=== PATIENT | male | born 1990 | race Caucasian/White ===

== ENCOUNTER 2016-05-03 18:13 | Emergency (ER) | payer SELFPAY ==
[2016-05-03 18:16] VITALS: BP 134/94
[2016-05-03] MEDS ORDERED: CYCL10TA2 PO (19:16)
[2016-05-03] MEDS ORDERED: NAPR250T2 PO (19:16)
--- NOTE | 2016-05-03 19:22 | ED.ADGEN ---
Past Medical History Past Medical History: No Pertinent History Past Surgical History: No Surgical History Alcohol Use: Occasionally Drug Use: None Adult General Chief Complaint Chief Complaint: MECHANICAL FALL HPI HPI Patient is a 25 year old man who presents to the emergency department with a complaint of right shoulder pain. Patient states that he tripped over a curb last night around midnight, and fell striking his shoulder against the ground, which was a grass covered surface. Patient is right-handed. Patient states that he has been noting pain in his shoulder with motion since that time, although he is able to range the arm. Denies any head pain, any neck pain, any chest pain , any abdominal pain, nausea, vomiting. Denies any other injuries or complaints. He states he took ibuprofen around 9:30 this morning, has not taken any medications since that time. No previous injuries. Review of Systems Review of Systems Constitutional: Denies fever or chills. [] Eyes: Denies change in visual acuity. [] HENT: Denies nasal congestion or sore throat. [] Respiratory: Denies cough or shortness of breath. [] Cardiovascular: Denies chest pain or edema. [] GI: Denies abdominal pain, nausea, vomiting, bloody stools or diarrhea. [] : Denies dysuria. [] Musculoskeletal: Denies back pain, complaining of pain in the right shoulder after a fall last night. Integument: Denies rash. [] Neurologic: Denies headache, focal weakness or sensory changes. [] Endocrine: Denies polyuria or polydipsia. [] Lymphatic: Denies swollen glands. [] Psychiatric: Denies depression or anxiety. [] Allergies Allergies Allergies Coded Allergies Type Severity Reaction Last Updated Verified No Known Drug Allergies 05/03/16 No Physical Exam Physical Exam Constitutional: Well developed, well nourished, no acute distress, non-toxic appearance. [] HENT: Normocephalic, atraumatic, bilateral external ears normal, oropharynx moist, no oral exudates, nose normal. [] Eyes: PERRLA, EOMI, conjunctiva normal, no discharge. [] Neck: Normal range of motion, no tenderness, supple, no stridor. [] Cardiovascular:Heart rate regular rhythm, no murmur, S1, S2, rubs or gallops. [] Lungs & Thorax: Bilateral breath sounds clear to auscultation, no wheezing, rhonchi, rales. No chest wall tenderness or crepitus. [] Abdomen: Bowel sounds normal, soft, no tenderness, no masses, no pulsatile masses. [] Skin: Warm, dry, no erythema, no rash. [] Back: No tenderness, no CVA tenderness. [] Extremities: Patient with tenderness all patient in the glenohumeral region, patient is able to range of motion passively, has pain with both passive and active motion, good strength, no bony point tenderness, no cyanosis, no clubbing , no edema. [] Neurologic: Alert and oriented X 3, normal motor function, normal sensory function, no focal deficits noted. [] Psychologic: Affect normal, judgement normal, mood normal. [] Current Patient Data Vital Signs Vital Signs Date Time Temp Pulse Resp B/P Pulse Ox O2 Delivery O2 Flow Rate FiO2 05/03/16 18:16 97.4 107 18 97 Room Air 97.4 EKG EKG Not indicated. [] Radiology/Procedures Radiology/Procedures Right shoulder x-ray: Three-view: Noted to have mild subluxation, no evidence of fracture or dislocation, no lung abnormalities noted in the visualized lung field. As interpreted by me. [] Course & Med Decision Making Course & Med Decision Making Pertinent Labs and Imaging studies reviewed. (See chart for details) Patient's examination consistent with musculoskeletal pain, no evidence of bruising, bleeding, bony abnormalities noted aside from mild subluxation. Discussed with patient use of muscle relaxers and anti-inflammatories, follow- up with orthopedics for additional evaluation if symptoms persist. Patient voiced understanding and agreement. Patient also stated that he has history of "something in my brain that needs surgery". Patient states that he was told this about a year ago at , he cannot recall what he was told. He states that he currently is looking for a second opinion. Patient denies any neurologic complaints, any headache, or any injury to the head. No indication for additional evaluation at this time per his report and history. Patient was given contact information for Dr. Randall of orthopedics, and Dr. Stark of neurosurgery. Also given prescription for cyclobenzaprine and naproxen, first dose given in the ED without issue, as patient has a friend in the room who will drive him home. To follow-up as stated, to return to the ED for concerning symptoms as discussed. Dragon Disclaimer Dragon Disclaimer This electronic medical record was generated, in whole or in part, using a voice recognition dictation system. Departure Impression: Primary Impression: Shoulder pain, right Disposition: 01 HOME, SELF-CARE Condition: IMPROVED Scripts Naproxen 250 Mg [id number] Mg PO BID PRN PAIN #10 Prov:PETRA CEDILLO DO 05/03/16 Cyclobenzaprine Hcl 10 Mg [id number] Mg PO TID PRN MUSCLE PAIN #14 TAB Prov:PETRA CEDILLO DO 05/03/16 PETRA CEDILLO DO May 03, 2016 19:22
[2016-05-03] MEDS ORDERED: CYCLOBENZAPRINE 10 MG TABLET. PO ONE (19:45)
[2016-05-03] MEDS ORDERED: NAPROXEN 250 MG TABLET PO ONE (19:45)
--- NOTE | 2016-05-04 08:58 | RAD ---
Indication: Pain after fall last night. Technique: 3 views of the right shoulder are submitted for review. No comparison is available. Findings: There is no fracture or dislocation. There is no osseous lesion. Impression: Negative for fracture.
== END 2016-05-03 20:10 | disposition home or self-care (01) ==
LOC: ER 18:13
DX: M25.511 Pain in right shoulder (principal); S43.001A Unspecified subluxation of right shoulder joint, initial encounter; W01.198A Fall on same level from slipping, tripping and stumbling with subsequent striking against other object, initial encounter; Y93.89 Activity, other specified; Y92.89 Other specified places as the place of occurrence of the external cause; Y99.8 Other external cause status
CPT/HCPCS: 73030; 99284